=== PATIENT | female | born 1965 | race Two or more races ===

== ENCOUNTER 2021-08-28 08:25 | Emergency (ER) | payer OTHER ==
[~2021-08-28] VITALS: Ht 152.4 cm; Wt 59.1 kg
[2021-08-28 09:10] LABS: COVID AG,FIA SOURCE NASAL SWAB
[2021-08-28 09:37] LABS: INFLUENZA TYPE A NEGATIVE FOR TYPE A (NEGATIVE); INFLUENZA TYPE B NEGATIVE FOR TYPE B (NEGATIVE)
[2021-08-28 12:35] VITALS: BP 141/72
== END 2021-08-28 12:49 | disposition home or self-care (01) ==
LOC: EMS 08:25
DX: U07.1 COVID-19 (principal)
CPT/HCPCS: 87804; 99283